=== PATIENT | female | born 1980 | race Caucasian/White ===

== ENCOUNTER 2020-09-06 09:05 | Observation (INO) ==
--- OUTSIDE RECORDS SUMMARY | 2020-09-06 09:08 | External Medical Summary | Continuity of Care Document ---
:1980 Author Name Heather Lopez Address Unavailable Unavailable , Care Team Providers Name Role Phone Unavailable Unavailable Unavailable Nieves SUN Unavailable Unavailable Unavailable Unavailable Unavailable Problems Abnormal finding on imaging (793.99) (R93.89) Acute appendicitis (540.9) (K35.80) Pelvic pain (R10.2) Limb pain (729.5) (M79.609) Normal routine physical examination (V70.0) (Z00.00) Abdominal pain (789.00) (R10.9) Allergies and Adverse Reactions No Known Drug Allergies (Allergy) Medications Vitamins John HACKETT Refills: 0 Procedures Procedures not documented Immunizations Immunizations not documented Social History - Smoking Status Never smoked tobacco Plan of Treatment Planned Observations Planned Goals not documented Results No Known Results Results not documented
[2020-09-06] MEDS ORDERED: MoRPHine SULFATE 4 MG/ML 1 ML CARP\\VIAL IV STA ×2 (09:20→11:20)
--- NOTE | 2020-09-06 09:29 | Emergency Department Note ---
Impression & Plan Closed tibia fracture, Closed fracture of fibula, proximal, left ED Provider Note CHIEF COMPLAINT: Left ankle/lower leg injury HISTORY OF PRESENT ILLNESS: This 39-year-old female patient presents to the emergency department via EMS after sustaining an injury to the left lower leg and ankle with a twisting motion about an hour ago. The patient states that she was dropping her kids off at school and she caught her foot on a curb, she states that her foot caught in the rest of her body twisted. She does note that she heard a "snap" in the leg. The patient complains of pain along the inside of the lower leg and ankle. The patient denies pain of the foot. The patient rates the pain as aching and throbbing and 6/10. The patient received IV fentanyl via EMS in route, she states this did help the pain initially, but she feels the pain is starting to get worse again. The patient states that she is not able to bear weight on the leg and she needed help getting up. Constant pain, worse with movement, weight bearing, and the dependent position. No knee pain, the patient is able to move their toes. No numbness or weakness of the foot, no laceration or abrasion. The patient has not had a previous fracture to this leg. Patient denies hitting her head or loss of consciousness, she denies any other injury from the fall. She denies taking any blood thinner medications. REVIEW OF SYSTEMS: A complete 10 point review of systems was reviewed with the patient with pertinent positives and negatives as per history of present illness. All else were negative. ALLERGIES: No known allergies PMH: Hypertension SOCIAL HISTORY: Lives at home with family, denies tobacco use PHYSICAL EXAM: Vital Signs: Reviewed Nurse's notes, vital signs stable. CONSTITUTIONAL: Pleasant and cooperative. No acute distress, but appears uncomfortable from pain. Otherwise well appearing and well nourished. HEENT: Normocephalic, atraumatic. PERRL, EOMI. NECK: Supple, full active range of motion without discomfort. No midline tenderness to palpation of the cervical spine. RESPIRATORY: Clear to auscultation bilaterally with no wheezing, crackles, rhonchi or stridor. Equal expansion bilaterally. CARDIOVASCULAR: Regular rate and rhythm with no murmurs, rubs or gallops. Normal peripheral perfusion, 2+ pulses in all 4 extremities. No peripheral edema. GASTROINTESTINAL: Soft, nontender, nondistended. No rebound tenderness or guarding. No palpable masses or HSM. Bowel sounds present in all quadrants. No CVA tenderness bilaterally. MUSCULOSKELETAL: There is swelling and ecchymosis noted along the medial aspect of the distal calf, tender to palpation and increased pain with any movement of the ankle. There is no tenderness to palpation over the lateral or medial malle hung and no tenderness to palpation throughout the left foot. No tenderness to palpation throughout the knee. The skin is intact and there is no apparent ligamentous instability. Calf compartments are soft. There is no visual deformity. The foot and toes are warm and well-perfused. Dorsalis pedis and posterior tibialis pulses are 2+. Sensation to pain and light touch is intact. Capillary refill brisk, less than 2 seconds. INTEGUMENTARY: No abrasions, lacerations, or puncture wound on the left lower leg. No rash or other significant dermatologic conditions noted. NEUROLOGIC: Alert and oriented X 4 with normal affect. No focal neurologic deficits noted. Normal strength and sensation in all 4 extremities. Normal speech. ED COURSE AND MEDICAL DECISION MAKING: CC: Patient presenting with complaint of fall and left leg injury DIFFERENTIAL DIAGNOSIS: Includes, but not limited to contusion, hematoma, sprain/strain, fracture, dislocation, compartment syndrome, among others. IMAGING: LEFT ANKLE 2 VIEWS; LEFT TIBIA AND FIBULA 2 VIEWS CLINICAL HISTORY: Fall. Left leg injury. FINDINGS: AP and crosstable lateral views of the left ankle with AP and crosstable lateral views of the left tibia and fibula are obtained. No prior studies are available for comparison at the time of dictation. There is a comminuted and distracted spiral fracture of the mid to distal tibial shaft fracture lucency extends into the distal metaphysis. A vertical component of the fracture may extend through the posterior tibial plafond. There is dorsal distraction of the distal fragment by approximately one shaft length. There is apex volar angulation of the fragments, with approximately 1.5 cm of overriding of the fragments. Additionally, there is a mildly displaced spiral fracture of the proximal fibula the distal fibula appears intact. The knee joint is grossly maintained. Soft tissue edema is present around the fracture sites. IMPRESSION: 1. Proximal fibular and mid to distal tibial fractures as above. 2. A component of the tibial fracture may extend through the posterior tibial plafond to the joint space. MEDICATION RECONCILIATION: I attest that I have personally reviewed the patient's current medication list. INITIAL VITAL SIGNS REVIEW: I reviewed the patient's initial vital signs and interpret them as follows: T: Afebrile; BP: Normotensive; HR: Tachycardic; RR : Within normal limits; Pulse Ox: Within normal limits on room air. MDM SUMMARY: Patient was evaluated at bedside, history and physical exam performed. Patient is alert and oriented, in no acute distress, resting calmly in stretcher. She does appear to be in some discomfort. There is moderate bruising and swelling of the calf, but no obvious deformity and no wounds to suggest open fracture. She is neurovascularly intact distal to the injury. Compartments are soft and nontender. Orders were placed for IV morphine and an ice pack to treat pain, x-rays of the tibia/fibula and left ankle to evaluate for trauma. Patient discussed with Dr. Gardner, who agrees with my assessment, plan, and dis position. X-ray imaging reviewed as above, notable for significant comminuted and distracted spiral fracture of the mid to distal tibial shaft as well as a proximal fibula fracture. The patient was reassessed frequently, her pain is being controlled with IV morphine. She remains neurovascularly intact with soft compartments. I spoke on the phone with Dr. Matthews, orthopedic surgery, who agrees to evaluate the patient and states he will most likely take her to the OR today. Preop labs were ordered per his request. Patient reassessed multiple times throughout ED stay, she has received addit ional doses of IV morphine and then IV Dilaudid to control her pain. The patient was updated on all results and plan for admission and surgery today, she verbalized understanding and was agreeable to this plan. Patient was stable at time of admission. The chart was completed utilizing [employer] Speech voice recognition software. Grammatical errors, random word insertions, pronoun errors, and incomplete sentences are an occasional consequence of this system due to software limitations, ambient noise, and hardware issues. Any formal questions or concerns about the content, text, or information contained within the body of this dictation should be directly addressed to the nurse practitioner for clarification. Past Med/Surg History Social History Smoking Status: Never smoker Hx Alcohol Use: Yes Alcohol type: wine Hx Substance Use: No Preferred Language: Estonian Communication Ability: Effective Corporate Counselor Required: No Beliefs That Will Affect Care: None Current Living Situation: Spouse and Family Other Information That Helps Us Care for You: No Feels Safe at Home: Yes Safety Concerns: Feels Safe At This Time Assistive Devices: Contacts and Glasses Allergies Allergies Allergy/AdvReac Type Severity Reaction Status Date / Time No Known Allergies Allergy Unknown Verified 09/06/20 10:08 Home Meds Home Medications Medication Instructions Recorded Confirmed amlodipine 2.5 mg PO QAM 09/06/20 09/06/20 Results & Data (ED) Vital Signs Vital Signs - 24 hr 09/06/20 09:10 09/06/20 11:25 09/06/20 13:34 Temperature 36.7 C Temperature Source Oral Pulse Rate 112 H Pulse Rate [Right Finger] 105 H 117 H Pulse Strength Bounding Respiratory Rate 24 20 24 Respiratory Effort / Characteristics Non-Labored Non-Labored Respiratory Depth Normal Normal Blood Pressure 121/73 Blood Pressure [Right Arm] 156/93 H 137/83 Blood Pressure Mean 89 Blood Pressure Mean [Right Arm] 114 101 Blood Pressure Position Lying Pulse Oximetry 99 96 99 Oxygen Delivery Method Room Air Room Air Sepsis Recent Fever Within 48 Hours No Sepsis New/Unexplained Change in Mental Status No Sepsis Action Taken by Nursing No Action Required Laboratory Data Result diagrams: 09/06/20 12:00 09/06/20 12:00 Lab Results 09/06/20 09/06/20 09/06/20 Range/Units 11:40 11:40 12:00 WBC 13.17 H (4.8-10.8) K/uL RBC 4.49 (4.2-5.4) M/uL Hgb 13.4 (12.0-16.0) g/dL Hct 39.6 (37-47) % MCV 88.2 (80-100) fL MCH 29.8 (25-34) pg MCHC 33.8 (32-36) g/dL RDW Std Deviation 40.5 (36.4-46.3) fL RDW Coeff of Nitish 12.6 (11.5-14.5) % Plt Count 335 (130-400) K/uL MPV 9.7 (7.4-10.4) fL Immature Gran % (Auto) 0.2 % Neut % (Auto) 88.5 % Lymph % (Auto) 8.5 % Maries % (Auto) 2.6 % Eos % (Auto) 0.0 % Baso % (Auto) 0.2 % Neut # (Auto) 11.67 H (1.4-6.5) K/uL Lymph # (Auto) 1.12 L (1.2-3.4) K/uL Maries # (Auto) 0.34 (0.11-0.59) K/uL Eos # (Auto) 0.00 (0-0.5) K/uL Baso # (Auto) 0.02 (0-0.2) K/uL Immature Gran # (Auto) 0.02 (0.00-0.02) K/uL PT (9.0-12.0) Seconds INR (0.9-1.1) APTT (21.0-31.0) Seconds PTT Ratio Sodium (136-145) mmol/L Potassium (3.5-5.1) mmol/L Chloride (98-107) mmol/L Carbon Dioxide (21-32) mmol/L Anion Gap (3-11) BUN (7-18) mg/dl Creatinine (0.6-1.2) mg/dl Est Cr Clr Drug Dosing ml/min Est GFR ( Amer) Est GFR (Non-Af Amer) BUN/Creatinine Ratio (10-20) Glucose (70-99) mg/dl Calcium (8.5-10.1) mg/dl COVID-19 Eval [facility] SARS-CoV-2, RNA, NAAT NEGATIVE (NEGATIVE) 09/06/20 09/06/20 Range/Units 12:00 12:00 WBC (4.8-10.8) K/uL RBC (4.2-5.4) M/uL Hgb (12.0-16.0) g/dL Hct (37-47) % MCV (80-100) fL MCH (25-34) pg MCHC (32-36) g/dL RDW Std Deviation (36.4-46.3) fL RDW Coeff of Nitish (11.5-14.5) % Plt Count (130-400) K/uL MPV (7.4-10.4) fL Immature Gran % (Auto) % Neut % (Auto) % Lymph % (Auto) % Maries % (Auto) % Eos % (Auto) % Baso % (Auto) % Neut # (Auto) (1.4-6.5) K/uL Lymph # (Auto) (1.2-3.4) K/uL Maries # (Auto) (0.11-0.59) K/uL Eos # (Auto) (0-0.5) K/uL Baso # (Auto) (0-0.2) K/uL Immature Gran # (Auto) (0.00-0.02) K/uL PT 10.1 (9.0-12.0) Seconds INR 1.0 (0.9-1.1) APTT 22.1 (21.0-31.0) Seconds PTT Ratio 0.8 Sodium 139 (136-145) mmol/L Potassium 4.2 (3.5-5.1) mmol/L Chloride 107 (98-107) mmol/L Carbon Dioxide 24 (21-32) mmol/L Anion Gap 8.0 (3-11) BUN 10 (7-18) mg/dl Creatinine 0.79 (0.6-1.2) mg/dl Est Cr Clr Drug Dosing 94.8 ml/min Est GFR ( Amer) 107.8 Est GFR (Non-Af Amer) 93.0 BUN/Creatinine Ratio 13.2 (10-20) Glucose 95 (70-99) mg/dl Calcium 8.7 (8.5-10.1) mg/dl COVID-19 Eval Order SARS-CoV-2, RNA, NAAT (NEGATIVE) Administered Medications Hydromorphone HCl (Hydromorphone Inj 0.5 Mg/0.5 Ml Syr) 0.5 mg IV Q15M PRN PRN Reason: Pain Stop: 09/20/20 15:18 Last Admin: 09/06/20 15:37 Dose: 0.5 mg Documented by: [id number] Sodium Chloride (Nss 1000ml) 1,000 mls @ 125 mls/hr IV .Q8H LATRELL Stop: 10/06/20 10:44 Last Admin: 09/06/20 16:51 Dose: 125 mls/hr Documented by: [id number] Infusion: 09/06/20 16:51 Dose: 125 mls/hr Documented by: [id number] Admin: 09/06/20 11:46 Dose: 125 mls/hr Documented by: [id number] Ondansetron HCl (Ondansetron Inj 2 Mg/Ml 2 Ml Vial) 4 mg IV Q6H PRN PRN Reason: Nausea/Vomiting Stop: 10/06/20 10:57 Last Admin: 09/06/20 15:36 Dose: 4 mg Documented by: [id number] Discontinued Medications Hydromorphone HCl (Hydromorphone Inj 0.5 Mg/0.5 Ml Syr) 0.5 mg IV NOW STA Stop: 09/06/20 13:25 Last Admin: 09/06/20 13:33 Dose: 0.5 mg Documented by: [id number] Morphine Sulfate (Morphine Sulfate 4 Mg/Ml 1 Ml Carp\\Vial) 4 mg IV NOW STA Stop: 09/06/20 09:21 Last Admin: 09/06/20 09:32 Dose: 4 mg Documented by: [id number] Morphine Sulfate (Morphine Sulfate 4 Mg/Ml 1 Ml Carp\\Vial) 4 mg IV NOW STA Stop: 09/06/20 11:21 Last Admin: 09/06/20 11:22 Dose: 4 mg Documented by: [id number] Discharge Plan Visit Data Chief Complaint: Leg Injury/Pain ED Provider: Marcus Gardner ED Midlevel Provider: Maame Nicole Discharge Problem: Closed tibia fracture, Closed fracture of fibula, proximal, left Patient Disposition: Admitted As Inpatient Condition: Good Discharge Instructions Interventions: ED Discharge Assessment Last Done: 09/06/20 14:24 Discharge Problem: Closed tibia fracture Qualifiers: Encounter type: initial encounter Tibia location: shaft Fracture morphology: spiral Fracture alignment: displaced Laterality: left Qualified Code(s): S82.242A - Displaced spiral fracture of shaft of left tibia, initial encounter for closed fracture Closed fracture of fibula, proximal, left Qualifiers: Encounter type: initial encounter Fracture morphology: unspecified fracture morphology Qualified Code(s): S82.832A - Other fracture of upper and lower end of left fibula, initial encounter for closed fracture
--- NOTE | 2020-09-06 10:04 | XRay Report ---
LEFT ANKLE 2 VIEWS; LEFT TIBIA AND FIBULA 2 VIEWS CLINICAL HISTORY: Fall. Left leg injury. FINDINGS: AP and crosstable lateral views of the left ankle with AP and crosstable lateral views of t he left tibia and fibula are obtained. No prior studies are available for comparison at the time of d ictation. There is a comminuted and distracted spiral fracture of the mid to distal tibial shaft frac ture lucency extends into the distal metaphysis. A vertical component of the fracture may extend thro ugh the posterior tibial plafond. There is dorsal distraction of the distal fragment by approximately one shaft length. There is apex volar angulation of the fragments, with approximately 1.5 cm of over riding of the fragments. Additionally, there is a mildly displaced spiral fracture of the proximal fi bula the distal fibula appears intact. The knee joint is grossly maintained. Soft tissue edema is pre sent around the fracture sites. IMPRESSION: 1. Proximal fibular and mid to distal tibial fractures as above. 2. A component of the tibial fracture may extend through the posterior tibial plafond to the joint sp vlad. Electronically signed by: Anish James M.D. 09/06/2020 10:02 AM
[2020-09-06] MEDS ORDERED: METOCLOPRAMIDE HCL INJ 5 MG/ML 2 ML VIAL IV PRN ×2 (10:58→20:48)
[2020-09-06] MEDS ORDERED: SODIUM CHLORIDE 0.9% 1000ML 1,000 ML IV SCH (11:00)
[2020-09-06] MEDS: SODIUM CHLORIDE 0.9% 1000ML 1,000 ML IV SCH ×2 (11:46→16:51)
--- NOTE | 2020-09-06 11:52 | CT Scan Report ---
LEFT ANKLE CT CT DOSE: 285.28 mGy.cm HISTORY: Right ankle fracture. preop planning TECHNIQUE: Multiaxial CT images of the left ankle were performed and reformatted in the sagittal and coronal plane without the use of contrast. A dose lowering technique was utilized adhering to the pr inciples of NIMA. COMPARISON: Left ankle 09/06/2020. FINDINGS: Redemonstration of the displaced and slightly comminuted spiral fracture within the mid to distal shaft of the left tibia. Nondisplaced fractures extend to the mid tibial plafond and posterior malleolus. Ankle mortise is maintained. The distal fibula is intact. A displaced component of the fr actures at the mid to distal shaft of the tibia demonstrate up to 1 cm of posterior displacement and 8 mm of lateral displacement. Soft tissue swelling within the mid to distal right lower leg. IMPRESSION: 1. Displaced and slightly comminuted spiral fracture within the mid to distal shaft of the tibia whic h extends to the tibial plafond/posterior malleolus as described above. 2. No dislocation within the left ankle. 3. No fractures within the distal fibula. ACT 112: Negative or not required by law. Electronically signed by: Jamison Morgan M.D. 09/06/2020 11:51 AM
--- NOTE | 2020-09-06 11:54 | History & Physical Report ---
Date of Service September 06, 2020 Assessment & Plan (1) Closed tibia fracture: Patient was seen in the emergency department and a posterior U-splint was placed on the left lower extremity by myself Discussed surgical intervention with the patient to fix the fracture. She states that she definitely wants to have the fracture fixed I discussed the risks and complications involved with the type of surgery she will undergo, however I did not have her sign a consent form because her surgeon was not present. She will discussed the risks with him preoperatively and signed the consent form at that time. Admission order was placed for the patient and I advised her that we will most likely keep her overnight for pain control She will be n.p.o. until planned surgical intervention later this afternoon with Dr. Mart Matthews Pain control will continue to be managed by emergency department staff. History of Present Illness Primary Care Provider: Taty Haley DO This 39-year-old female was seen in the emergency department this morning. Patient states that after placing her children on the bus to school she slipped on some ice and injured her left lower extremity. After the fall she was unable to bear weight or ambulate on the extremity. Patient states when she slipped her leg twisted inward and landed on her as she fell. She denies any injury to any other body parts. She states that she did have a small bottle of water after the injury occurred while being transported to the emergency department, however she has not had any solid food. At this point, she denies chest pain, shortness of breath, fever, chills, sweats, lethargy or numbness or tingling in her left lower extremity. Past medical history includes hypertension for which she is treated Past surgical history: section x2 and appendectomy Family history: Heart disease Social history: Patient states she drinks between 1 and 2 alcoholic beverages per week. She denies use of tobacco products or any illegal substances. Allergies Allergy/AdvReac Type Severity Reaction Status Date / Time No Known Allergies Allergy Unknown Verified 09/06/20 10:08 Home Medications Medication Instructions Recorded Confirmed Type amlodipine 2.5 mg PO QAM 09/06/20 09/06/20 History Past Med/Surg History Social History Smoking Status: Never smoker Hx Alcohol Use: Yes Alcohol type: wine Hx Substance Use: No Preferred Language: Pashto Communication Ability: Effective Renewable Energy Engineer Required: No Beliefs That Will Affect Care: None Current Living Situation: Spouse and Family Other Information That Helps Us Care for You: No Feels Safe at Home: Yes Safety Concerns: Feels Safe At This Time Assistive Devices: Contacts and Glasses Review of Systems All systems reviewed & are unremarkable except as noted in Subjective Physical Exam Physical Exam: Left lower extremity: Patient has notable edema and ecchymosis to the medial surface of her left lower extremity tracking from the anterior plane to the posterior plane. This area is exquisitely tender to light palpation. Patient is able to actively move the digits of her left foot. She is able to actively dorsi and plantarflex her foot, however movement is limited due to the pain she experiences. Quad tone is 3 out of 5. Patient's calf is soft and nontender to palpation. Peripheral pulses are 2+. Capillary refill is less than 2 seconds. Patient is neurovascularly intact in the left lower extremity. Results & Data ([facility]) Vital Signs (Past 12 Hours) Vital Signs Temp Pulse Resp BP Pulse Ox 09/06/20 09:10 36.7 C 112 H 24 121/73 99 Supervising Physician Co-Signing Physician Notes I saw and examined the patient in the Emergency Room, and reviewed her imaging findings. She has a comminuted tibial shaft fracture with extension distally into the ankle joint with nondisplaced fractures in both the coronal and sagittal planes. Explained the diagnosis and treatment options. Surgery recommended to reduce and stabilize fracture. Reviewed risks/benefits of surgery, alternatives and expected outcomes. All questions signed. Informed consent signed. Plan to go to operating room [facility] for intramedullary nail left tibia shaft fracture, open reduction internal fixation left ankle fracture.
[2020-09-06 12:14] LABS: Basophils # (auto) 0.02 K/uL (0-0.2); Basophils % (auto) 0.2 %; Hematocrit (blood only) 39.6 % (37-47); Hemoglobin 13.4 g/dL (12.0-16.0); Immature Granulocytes # (auto) 0.02 K/uL (0.00-0.02); Immature Granulocytes % (auto) 0.2 %; Lymphocytes # (auto) 1.12 K/uL (1.2-3.4); Lymphocytes % (auto) 8.5 %; Mean Corpuscular Hemoglobin 29.8 pg (25-34); Mean Corpuscular Hgb Conc 33.8 g/dL (32-36); Mean Corpuscular Volume 88.2 fL (80-100); Mean Platelet Volume 9.7 fL (7.4-10.4); Monocytes # (auto) 0.34 K/uL (0.11-0.59); Monocytes % (auto) 2.6 %; Neutrophils # (auto) 11.67 K/uL (1.4-6.5); Neutrophils % (auto) 88.5 %; Platelet Count 335 K/uL (130-400); RDW Coefficient of Variation 12.6 % (11.5-14.5); RDW Standard Deviation 40.5 fL (36.4-46.3); Red Blood Count 4.49 M/uL (4.2-5.4); White Blood Count 13.17 K/uL (4.8-10.8)
[2020-09-06 12:25] LABS: Partial Thromboplastin Ratio 0.8; Partial Thromboplastin Time 22.1 Seconds (21.0-31.0); Prothrombin Time 10.1 Seconds (9.0-12.0)
[2020-09-06 12:31] LABS: BUN Creatinine Ratio 13.2 (10-20); Calcium 8.7 mg/dl (8.5-10.1); Creatinine Clr Calc Pharmacy 94.8 ml/min; Est GFR (African American) 107.8; Potassium 4.2 mmol/L (3.5-5.1)
[2020-09-06] MEDS ORDERED: HYDROmorphone INJ 0.5 MG/0.5 ML SYR IV STA (13:24)
[2020-09-06] MEDS: ONDANSETRON INJ 2 MG/ML 2 ML VIAL IV PRN (15:36)
[2020-09-06] MEDS: HYDROmorphone INJ 0.5 MG/0.5 ML SYR IV PRN ×3 (15:37→19:58)
--- NOTE | 2020-09-06 20:42 | Anesthesiology Consultation ---
Date of Service September 06, 2020 Assessment & Plan ASA ASA2 Proposed Anesthesia Anesthesia Type: General History Surgery Operation Date: 09/06/20 13:55 Proposed Procedures p Intramedullary Nail Tibia/Fibula Left Jake - Mart Matthews MD Height/Weight Height: 5 ft 3 in Weight: 76.6 kg Allergies Allergy/AdvReac Type Severity Reaction Status Date / Time No Known Allergies Allergy Unknown Verified 09/06/20 10:08 Medications Home Medications Medication Instructions Recorded Confirmed Last Taken amlodipine 2.5 mg PO QAM 09/06/20 09/06/20 09/05/20 Active Medications Generic Name Dose Route Start Last Admin Trade Name Freq PRN Reason Stop Dose Admin Hydromorphone HCl 0.5 mg 09/06/20 15:19 09/06/20 19:58 Hydromorphone Inj 0.5 Mg/0.5 Ml Syr IV 09/20/20 15:18 0.5 mg Q15M PRN Administration Pain Sodium Chloride 1,000 mls @ 125 mls/hr 09/06/20 10:45 09/06/20 16:51 Nss 1000ml IV 10/06/20 10:44 125 mls/hr .Q8H LATRELL Administration Ondansetron HCl 4 mg 09/06/20 10:58 09/06/20 15:36 Ondansetron Inj 2 Mg/Ml 2 Ml Vial IV 10/06/20 10:57 4 mg Q6H PRN Administration Nausea/Vomiting Social History Smoking Status: Never smoker Hx Alcohol Use: Yes Alcohol type: wine alcohol intake frequency: other Alcohol Intake Frequency Comment: 1 drink a week Hx Substance Use: No Physical Exam Vital Signs Last Vital Signs Temp 36.6 C 09/06/20 16:09 Pulse 103 H 09/06/20 16:09 Resp 18 09/06/20 16:09 BP 127/69 09/06/20 16:09 Pulse Ox 95 09/06/20 16:09 Testing Laboratory Results 09/06/20 12:00 09/06/20 12:00 PT 10.1 Seconds (9.0-12.0) 09/06/20 12:00 INR 1.0 (0.9-1.1) 09/06/20 12:00 APTT 22.1 Seconds (21.0-31.0) 09/06/20 12:00
[2020-09-06] MEDS ORDERED: BUPIVACAINE 0.5 % 5 MG/1 ML MPF 30ML VIAL ONE (20:45)
[2020-09-06 20:47] LABS: Pregnancy Test, Urine Negative (Negative)
[2020-09-06] MEDS ORDERED: ePHEDrine sulfate 50 MG/ML AMP IV PRN (20:48)
[2020-09-06] MEDS ORDERED: fentaNYL citrate 100 MCG/2 ML VIAL IV PRN (20:48)
[2020-09-06] MEDS ORDERED: ONDANSETRON INJ 2 MG/ML 2 ML VIAL IV PRN (20:48)
[2020-09-06] MEDS ORDERED: HYDROmorphone INJ 2 MG/ML SYR/VIAL IV PRN (20:48)
[2020-09-06] MEDS ORDERED: PROMETHAZINE HCL 12.5 MG in SODIUM CHLORIDE 0.9% 50 ML IV PRN (20:48)
[2020-09-06] MEDS ORDERED: ATROPINE SULFATE 0.1 MG/ML 10ML SYR IV PRN (20:48)
[2020-09-06] MEDS ORDERED: fentaNYL citrate 100 MCG/2 ML VIAL ONE ×2 (20:53→23:35)
[2020-09-06] MEDS ORDERED: PROPOFOL IV EMULSION 10 MG/ML 20 ML VIAL IV ONE (20:53)
[2020-09-06] MEDS ORDERED: LIDOCAINE HCL 2% 2 ML VIAL/AMP(20MG/ML) INFIL ONE (20:53)
[2020-09-06] MEDS ORDERED: MIDAZOLAM HCL 1 MG/ML 2ML VIAL ONE (20:53)
[2020-09-06] MEDS ORDERED: ROCURONIUM BROMIDE 10 MG/ML 5 ML VIAL IV ONE (20:53)
[2020-09-06] MEDS ORDERED: ONDANSETRON INJ 2 MG/ML 2 ML VIAL ONE (21:35)
[2020-09-06] MEDS ORDERED: DEXAMETHASONE SOD INJ 4 MG/ML VIAL ONE (22:36)
[2020-09-06] MEDS ORDERED: HYDROmorphone INJ 2 MG/ML SYR/VIAL ONE (22:39)
--- NOTE | 2020-09-07 00:18 | Post Operative Brief Note ---
Immediate Post Op Note v1 Date of Surgery September 07, 2020 Pre & Post Diagnosis Operation Date: 09/06/20 13:55 Pre-Op Diagnosis: Left Tibia Fibula Fracture, left ankle fracture Post-Op Diagnosis: Left Tibia Fibula Fracture, left ankle fracture I identified the patient and participated in the time-out.: Yes Procedure Operation Date: 09/06/20 13:55 Actual Procedures p Intramedullary Nail Tibia Fracture (Left), Open Reduction Internal Fixation Ankle Fracture(Left) Ankle(Left) - Mart Matthews MD Surgeon Mart Matthews MD Montessori Paraprofessional Cuong Betancourt PA-C Estimated Blood Loss 50 Findings Consistent with Post-Op Diagnosis Fluids 1500 cc Anesthesia Type General Complications none Disposition Accompanied Patient To Recovery: No Disposition: Recovery Room
--- NOTE | 2020-09-07 00:47 | Operative Report ---
Post Operative Report Pre & Post Diagnosis Operation Date: 09/06/20 13:55 Pre-Op Diagnosis: Left Tibia Fibula Fracture Post-Op Diagnosis: Left Tibia Fibula Fracture I identified the patient and participated in the time-out.: Yes Procedure Operation Date: 09/06/20 13:55 Actual Procedures p Intramedullary Nail Tibia Fracture, Left Open Reduction Internal Fixation Left Ankle(Left) - Mart Matthews MD Surgeon AZALEA Matthews MD Beam Builder Helper Cuong Betancourt PA-C Estimated Blood Loss 50 Findings Consistent with Post-Op Diagnosis Specimens None Drains None Complications none Disposition Accompanied Patient To Recovery: Yes Disposition: Recovery Room Indications This 39-year-old white female presented to the ED after injuring herself when stepping off a curb. She was found to have a tibial fracture with intra- articular extension into the ankle. She elected to proceed with surgical intervention after being educated about potential risks and outcomes. Preoperative imaging was obtained. Description of Procedure Patient was taken to the operating room where she was given general anesthesia. She was prepped and draped in the usual sterile fashion. Please see Dr. Matthews's operative note for specifics of the procedure. I was present for the entire case from initial patient positioning through final wound closure. Assistance was provided in patient positioning, tissue retraction, hemostasis, fracture reduction, hardware placement, and final wound closure. Patient was taken to recovery in ICU in satisfactory condition. I attest to the content of the Intraoperative Record and any orders documented therein. Any exceptions are noted below.
[2020-09-07] MEDS ORDERED: HYDROmorphone INJ 0.5 MG/0.5 ML SYR IV PRN (01:39)
[2020-09-07] MEDS ORDERED: MAGNESIUM HYDROXIDE SUSP 30 ML UDC PO PRN (01:39)
[2020-09-07] MEDS ORDERED: diphenhydrAMINE 50 MG/ML VIAL IV PRN (01:39)
[2020-09-07] MEDS ORDERED: bisacodyL 10 MG SUPP PR PRN (01:39)
[2020-09-07] MEDS ORDERED: NALOXONE HCL 0.4 MG/1 ML VIAL/CARP IV PRN (01:39)
[2020-09-07] MEDS: SODIUM CHLORIDE 0.9% 1000ML 1,000 ML IV SCH ×2 (01:45→12:57)
--- NOTE | 2020-09-07 01:48 | Anesthesiology Progress Note ---
Date of Service September 07, 2020 Anesthesia Post Procedure Vital Signs Vital Signs: Temp Pulse Pulse Pulse Resp BP BP 09/07/20 01:25 36.7 C 73 22 123/56 L 09/07/20 01:10 89 24 124/65 09/07/20 01:00 77 20 116/60 09/07/20 00:50 85 18 122/69 09/07/20 00:43 37.0 C 95 H 14 119/78 09/06/20 16:09 36.6 C 103 H 18 127/69 09/06/20 14:43 37 C 124 H 16 147/85 H 09/06/20 13:34 117 H 24 137/83 09/06/20 11:25 105 H 20 156/93 H 09/06/20 09:10 36.7 C 112 H 24 121/73 Pulse Ox 09/07/20 01:25 97 09/07/20 01:10 98 09/07/20 01:00 98 09/07/20 00:50 98 09/07/20 00:43 93 09/06/20 16:09 95 09/06/20 14:43 100 09/06/20 13:34 99 09/06/20 11:25 96 09/06/20 09:10 99 Pain Intensity Left Lower Leg: Pain Intensity: 0 Transfer of Care Handoff Completed per policy Notes Mental Status: alert / awake / arousable and participated in evaluation Patient Amnestic to Procedure: Yes Nausea / Vomiting: adequately controlled Pain: adequately controlled Airway Patency, RR, SpO2: stable & adequate BP & HR: stable & adequate Hydration State: stable & adequate Anesthetic Complications: no major complications apparent
[2020-09-07] MEDS: ACETAMINOPHEN 500 MG TAB PO SCH ×2 (05:19→13:09)
[2020-09-07] MEDS: ceFAZolin 2000MG 2,000 MG/15 ML SYR IV SCH ×2 (05:19→13:09)
[2020-09-07] MEDS: oxyCODONE HCL IR 5 MG TAB (IMMEDIATE RELEASE) PO PRN ×2 (05:27→10:26)
[2020-09-07] MEDS ORDERED: ceFAZolin 2000MG 2,000 MG/15 ML SYR IV SCH (06:00)
[2020-09-07] MEDS: ONDANSETRON INJ 2 MG/ML 2 ML VIAL IV PRN (07:00)
[2020-09-07 07:08] LABS: Hematocrit (blood only) 36.9 % (37-47); Hemoglobin 12.2 g/dL (12.0-16.0); Mean Corpuscular Hemoglobin 29.8 pg (25-34); Mean Corpuscular Hgb Conc 33.1 g/dL (32-36); Mean Platelet Volume 9.9 fL (7.4-10.4); Platelet Count 324 K/uL (130-400); RDW Coefficient of Variation 12.7 % (11.5-14.5); RDW Standard Deviation 41.8 fL (36.4-46.3); White Blood Count 10.38 K/uL (4.8-10.8)
[2020-09-07 07:38] LABS: BUN Creatinine Ratio 10.6 (10-20); Calcium 8.3 mg/dl (8.5-10.1); Creatinine Clr Calc Pharmacy 83.4 ml/min; Est GFR (African American) 95.9; Est GFR (Non-African American) 82.7; Potassium 3.9 mmol/L (3.5-5.1)
--- NOTE | 2020-09-07 07:53 | Fluoroscopy Report ---
FL tibia/fibula LT 2V CLINICAL HISTORY: LT NAIL TIB/FIB FX COMPARISON STUDY: Left ankle CT 09/06/2020. FLUOROSCOPY TIME: 3 minutes and 50 seconds. FINDINGS: Status post internal fixation of a left tibial fracture with an intramedullary nayeli and prox imal and distal interlocking screws. The hardware appears intact. Alignment is near-anatomic. Proxima l fibular fracture is again noted. IMPRESSION: Fluoroscopy provided for internal fixation of a left tibial fracture. ACT 112: Negative or not required by law. Electronically signed by: Jamison Morgan M.D. 09/07/2020 7:51 AM
[2020-09-07 08:25] VITALS: BP 130/79; TEMP 98.4; O2SAT 100
[2020-09-07] MEDS ORDERED: amLODIPine BESYLATE 5 MG TAB PO SCH (09:00)
[2020-09-07] MEDS ORDERED: RIVAROXABAN 10 MG TABLET PO SCH (09:00)
[2020-09-07] MEDS ORDERED: DOCUSATE SODIUM 100 MG CAP PO SCH (09:00)
[2020-09-07] MEDS ORDERED: MULTIVITAMIN TAB PO SCH (09:00)
--- NOTE | 2020-09-07 09:03 | Operative Report (OR) ---
DATE OF OPERATION: 09/06/2020 PREOPERATIVE DIAGNOSES: 1. Comminuted left tibial shaft spiral fracture. 2. Left ankle fracture intraarticular. POSTOPERATIVE DIAGNOSES: 1. Comminuted left tibial shaft spiral fracture. 2. Left ankle fracture intraarticular. OPERATIONS PERFORMED: 1. Intramedullary nailing, left comminuted tibial shaft fracture. 2. Open reduction internal fixation of left ankle fracture. SURGEON: Mart Matthews MD STUDIO OPERATIONS ENGINEER IN CHARGE: Cuong Betancourt PA-C. No resident or felow was available to assist. ESTIMATED BLOOD LOSS: 50 mL. INTRAVENOUS FLUIDS: 1500 mL crystalloid. SPECIMENS: None. COMPLICATIONS: None. IMPLANTS: 1. Synthes 10 x 315 mm long nail titanium. 2. Four 5 mm locking screws measuring 36 for the proximal static screw, 38 for the proximal dynamic screw, 42 and 34 for the distal screws. 3. One 0 mm end cap. 4. Two 3.5 mm cortical screws, one measuring 38 and the second measuring 40 mm. INDICATIONS: The patient is a 39-year-old female who stepped off a curb today, twisting her ankle resulting in a comminuted spiral fracture of the midshaft of the tibia. The fracture line actually extended down all the way to the level of the ankle joint and was in 2 planes, both the coronal and the sagittal plane as seen on cross sectional CT imaging. Fortunately, these fractures were nondisplaced. I had a long discussion with the patient about the severity of her injury. Surgery was recommended to reduce and stabilize the articular fractures at her ankle and stabilize the tibial shaft fracture. This was to promote healing, decrease the risk of posttraumatic osteoarthritis of her ankle and promote function. I had a long discussion with her about the risks and benefits of surgery, alternatives to surgery and expected outcomes. After reviewing all these, she elected to proceed with surgery. All questions were answered. Informed consent was signed. OPERATIVE FINDINGS: The ankle fractures in the coronal and sagittal plane were stabilized with 3.5 mm cortical screws in lag technique through a small incision along the anterior border of the fibula outside of the tract of the nail. The tibial shaft fracture was then reduced and stabilized with a 10 mm diameter Synthes titanium nail with one [id number] screw distally to further stabilize the sagittal split fragment and a second distal screw in the AP dimension to stabilize the posterior malleolus fragment. Two proximal medial to lateral cross-locking screws were then placed, one in static and one in dynamic fashion. DESCRIPTION OF THE PROCEDURE: The patient was identified in the preoperative holding area where her surgical site was marked. She was brought back to the operating room where general anesthesia was administered on the hospital bed. She was then carefully moved over on the fracture table. A bump was placed underneath the operative hip. All bony prominences were padded. Perioperative antibiotics were administered. She was prepped and draped in normal sterile fashion. Prior to incision, a multidisciplinary timeout was called. All in the room were in agreement. We began by stabilizing the articular fractures at the level of her left ankle. A 4 cm long incision was made along the anterior border of the fibula. I dissected down through subcutaneous tissues to the level of the fascia. We searched for the superficial peroneal nerve, but did not encounter any branches and subcutaneous tissue. I then incised the fascia right at the anterior inferior tibiofibular ligament, which allowed me to retract the musculature in subperiosteal fashion onto the anterolateral [place] tubercle of the anterolateral distal tibia. We then brought in fluoroscopy. On the lateral view, we placed our wire from anterior to posterior. We checked this on the AP view. It was slightly too far lateral, so a second guidewire was placed just medial to this. We were happy with the position of this wire. It would be outside of the area where the nail would need to go. We then overdrilled with a cannulated drill. We took our measurement. We then overdrilled the near cortex with a 3.5 drill and placed our 3.5 mm cortical screw in lag technique. Excellent fixation was obtained. Next, on the AP view, we placed a second wire, this one going from lateral to medial just proximal to the previous screw. This was along the anterior aspect of the tibia again and far anterior to the center-center position of the desired nail location. This wire was optimized on the AP and lateral views. We then drilled over the wire with a cannulated drill, overdrilled the near cortex with a 3.5 mm drill, measured and placed our 3.5 mm cortical screw. Excellent fixation was obtained. At this point, we proceeded to perform the intramedullary nailing portion of the case. The knee was flexed up on a triangle. A 5 cm long incision was made for tip from the inferior pole of the patella to the tibial tubercle. I dissected through subcutaneous tissues to the level of paratenon. Paratenon and patellar tendon were incised along the midline. We then brought up our guide pin and under fluoroscopic guidance, we optimized our placement of the pin on AP view. We then switched to the lateral view and further optimized the position of wire. We then drove the wire down into the tibia. The position of the wire was again checked on AP and lateral views, which we were happy with. We then placed our entry reamer. This was then removed and the guidewire was bent on the back table and then gently slid down to the level of the fracture. The fracture was anatomically reduced manually with traction and manipulation to correct the apex anterior angulation and to ensure there was no varus deformity. We then passed the guidewire across the fracture site. Using the bend and the guidewire, we were able to end the guidewire in the perfect center-center position on the AP and lateral fluoroscopic views of the ankle. We ended the guidewire just at the level of our more distal anterior to posterior screw under fluoroscopy. Next, we took our measurement. This was measuring 319 mm. I elected to therefore used a 315 mm nail as the neck size down, was likely to be too far recessed into the tibia. I then began reaming the intramedullary canal with an 8.5 mm reamer. We reamed all the way up to a size 11.5 mm, which gave us good cortical chatter. Reaming was completed while holding the fracture manually reduced. We then opened up the 10 x 315 mm titanium nail. This was slid down over the guidewire and tapped down to the level of the fracture. We again confirmed the fracture was anatomically reduced and then passed the nail across the fracture site into the distal fragment. The nail was tapped all the way down to the end of the guidewire. We checked under fluoroscopy for the proximal level of the nail, which we were happy with. We then inspected our fracture site. The fracture was anatomically reduced. I did not feel that a backslapping was going to give us any additional reduction and therefore, we placed our 2 medial to lateral proximal screws under fluoroscopic guidance through a 3 cm long incision on the medial aspect of the proximal tibia using the trocars for a soft tissue protection. One of these locking screws was placed in static mode and the second was in dynamic mode. Next, the introducer for the nail was removed and the knee was brought into full extension. We then using perfect circles technique, placed our medial to lateral cross-locking screw. The anterior to posterior screw was then templated out on the skin. We made our incision and then backed the C-arm up, so we could visualize the tibialis anterior tendon. We incised through the tib-ant tendon sheath and then retracted the tib-ant laterally to protect the neurovascular bundle. We then brought the C-arm back in while holding the tib-ant retracted out of the way and optimized our starting position for a drill and then drilled in bicortical fashion using perfect circles technique. This second cross-locking screw was then placed without difficulty. At this point, our final fluoroscopic views were obtained. We were very happy with articular reduction of the ankle, the reduction of the tibial shaft fracture and the cross-locking screw placement. The nail was just slightly proud proximally by a couple of millimeters. We therefore used a size 0 end cap. This was placed without difficulty. We then irrigated all of her wounds and began to close. The patellar tendon split and paratenon were closed with a running 2-0 Vicryl. The fascia from the distal incision along the anterior aspect of the fibula was closed with interrupted 2-0 Vicryl sutures. 3-0 Vicryl were used for deep dermal closure, followed by jeni for the skin. A 30 mL of 0.5% Marcaine without epinephrine was injected into the incision sites for postoperative pain control. Xeroform was placed followed by 4 x 4's, ABDs and cast padding. The patient was then placed into a posterior and U plaster slab splint with the ankle held at neutral. She was then awoken from anesthesia and transferred to recovery room in stable condition. POSTOPERATIVE COURSE: The patient will be admitted overnight for pain control and monitoring. She will be on Xarelto for DVT prophylaxis for the next 4 weeks, then aspirin. She will remain nonweightbearing for the first 2 weeks and then begin weightbearing as tolerated in a Cam boot at the 2-week point with ankle range of motion exercises initiated at that time. I attest to the content of the Intraoperative Record and any orders documented therein. Any exceptions are noted below. ALFONSOD
--- NOTE | 2020-09-07 10:50 | XRay Report ---
XR tibia fibula LT 2V CLINICAL HISTORY: Left lower leg internal fixation. Postop. COMPARISON STUDY: Left ankle 09/06/2019. FINDINGS: Status post placement of intramedullary nayeli within the left tibia transfixing the mid to di stal fracture. Alignment appears near-anatomic. The hardware is intact. Skin jeni are in place. Ov erlying splint material obscures fine bony detail. Slightly displaced proximal fibular fracture is ag ain noted. IMPRESSION: Status post internal fixation of a left tibial fracture. The hardware appears intact. ACT 112: Negative or not required by law. Electronically signed by: Jamison Morgan M.D. 09/07/2020 10:48 AM
--- NOTE | 2020-09-07 12:46 | Orthopedic Progress Note ---
Date of Service September 07, 2020 Assessment & Plan (1) S/P ORIF (open reduction internal fixation) fracture: Patient was educated regarding today's findings. Conservative care measures were discussed. She would like to go home. I do think it is reasonable, as she is getting around well. Discharge instructions were written. Order was given to nursing staff. Follow-up in the office with Dr. Matthews in 2 weeks for staple removal. She will call the office on Wednesday for an appointment. Prescriptions for Xarelto 10 mg and Percocet 5/325 mg were sent. Prescription was provided for a walker. Call the office with any other concerns. Continue using her ARNOLD hose on the right leg. Ice and elevate frequently to reduce pain and swelling. Admission and Anticipated Discharge Date Admission Date: September 06, 2020 Subjective Patient is seen in her room this morning. She was sleeping but easily awakens. She states she had some pain earlier, but is quite comfortable now. She did participate in physical therapy earlier and feels she did well. She would like to go home today. She was able to get around reasonably well with the walker. She feels stable with it. She denies any chest pain, shortness of breath, nausea, vomiting, or abdominal pain. She was able to eat breakfast. No other complaints. Review of Systems Review of Systems: Unchanged from yesterday. Physical Exam Physical Exam: General: Well-developed, well-nourished, young white female, in no acute distress. Sitting in a bed. Alert and oriented. Skin: Warm and dry with good turgor. No rashes or lesions. No ecchymosis or erythema. The patient is not diaphoretic. No bleeding on her bandages. Musculoskeletal: Left lower extremity has an intact splint. Dressings are clean and dry. There is no bleedthrough. She has intact motor function of her toes of the left foot. She is able to perform a straight leg raise. Neurologic: Gross sensation is intact across each of the digits of the left foot by soft touch. Capillary refill is equal for each of the digits. Results & Data ([facility]) Vital Signs (Past 12 Hours) Vital Signs Temp Pulse Pulse Resp BP Pulse Ox 09/07/20 08:24 36.9 C 96 H 16 130/79 100 09/07/20 03:35 36.7 C 95 H 16 118/70 99 02/06/21 02:35 36.8 C 98 H 18 122/72 99 09/07/20 02:05 36.6 C 91 H 16 123/73 95 09/07/20 01:35 36.7 C 91 H 14 127/74 95 09/07/20 01:25 36.7 C 73 22 123/56 L 97 09/07/20 01:10 89 24 124/65 98 09/07/20 01:00 77 20 116/60 98 09/07/20 00:50 85 18 122/69 98 09/07/20 00:43 37.0 C 95 H 14 119/78 93
[2020-09-07 12:59] VITALS: PULSE 73
[2020-09-07] MEDS ORDERED: SENNA 8.6 MG TAB PO SCH (21:00)
== END 2020-09-07 14:39 | disposition home or self-care (01) ==
LOC: ED 09:05 → 3W 13:52 → INTOOBSV 13:52 → 3W 14:24